=== PATIENT | female | born 1945 ===

== ENCOUNTER 2021-08-14 18:29 | Emergency (ER) | payer MEDICARE, OTHER ==
[~2021-08-14] VITALS: Ht 160 cm; Wt 81.7 kg
[~2021-08-14 18:29] MED LIST: ACTEMRA200 MG/10 IV; Aspir 8181 MG PO; DIGO.25 PO; DILT120 PO; DILT180 PO; DILT30 PO; ELIQUIS2.5 MG PO; Flecainide Acet50 MG PO; LEVO-T112 MCG PO; Omeprazole20 M1 PO; POTCHL20ER PO; [UNRECOGNIZED DRUG - OTHER]
[2021-08-14] MEDS ORDERED: AMOCLA875 PO (20:14)
== END 2021-08-14 20:59 | disposition short-term general hospital (02) ==
LOC: ER 18:29
DX: S81.851A Open bite, right lower leg, initial encounter (principal); S71.152A Open bite, left thigh, initial encounter; S71.151A Open bite, right thigh, initial encounter; S01.85XA Open bite of other part of head, initial encounter; S11.95XA Open bite of unspecified part of neck, initial encounter; I48.91 Unspecified atrial fibrillation; E03.9 Hypothyroidism, unspecified; K21.9 Gastro-esophageal reflux disease without esophagitis; Z79.899 Other long term (current) drug therapy; Z79.01 Long term (current) use of anticoagulants; W54.0XXA Bitten by dog, initial encounter
CPT/HCPCS: 12002; 96365-59; 99284-25; J0295

== ENCOUNTER → 2021-08-22 | Outpatient (CLI) | payer MEDICARE, OTHER ==
[~2021-08-22] MED LIST changes: +AMOCLA875 PO
== END | disposition home or self-care (01) ==
LOC: LAB SHORT 19:05
DX: Z48.89 Encounter for other specified surgical aftercare (principal)
CPT/HCPCS: 87070; 87075; 87077; 87186; 87205